=== PATIENT | male | born 1995 | race Caucasian/White ===

== ENCOUNTER 2016-06-29 09:14 | Emergency (ER) | payer OTHER ==
[2016-06-29 09:34] VITALS: BP 152/95; PULSE 64; RESP 18; TEMP 98
--- NOTE | 2016-06-29 09:44 | ED ---
Lower Extremity Injury HPI - General Chief Complaint: Extremity Injury, Lower Stated Complaint: Foot pain Time Seen by Provider: 06/29/16 09:39 Source: patient, RN notes reviewed Mode of arrival: ambulatory Limitations: physical limitation - History of Present Illness Initial Comments: 20-year-old male presents to the emergency department with a chief complaint of left ankle pain. Patient states he was playing basketball and he landed on his ankle and rolled it. Patient states he now has pain along the lateral aspect of the left ankle. Patient states that it is tender to touch along the lateral aspect. Patient did notice some bruising as well. Patient denies any knee pain. Patient states he has been wearing his dads walking boot which has helped him with his discomfort. Patient states he is not currently having any other symptoms at this time.Patient denies any recent fever, chills, shortness of breath, chest pain, back pain, abdominal pain, nausea vomiting, numbness or tingling, dysuria or hematuria, constipation or diarrhea, headaches or visual changes, or any other current symptoms. - Related Data Home Medications Medication Instructions Recorded Confirmed No Known Home Medications [No 06/29/16 06/29/16 Known Home Medications] Allergies Allergy/AdvReac Type Severity Reaction Status Date / Time No Known Allergies Allergy Verified 06/29/16 09:34 Review of Systems ROS Statement: Those systems with pertinent positive or pertinent negative responses have been documented in the HPI. ROS Other: All systems not noted in ROS Statement are negative. Past Medical History Past Medical History: No Reported History History of Any Multi-Drug Resistant Organisms: None Reported Past Surgical History: No Surgical Hx Reported Past Psychological History: No Psychological Hx Reported Smoking Status: Never smoker Past Alcohol Use History: None Reported, Occasional Past Drug Use History: None Reported General Exam - General Exam Comments Initial Comments: General: The patient is awake and alert, in no distress, and does not appear acutely ill. Neck: The neck is supple, there is no tenderness. Cardiovascular: There is a regular rate and rhythm. No murmur, rub or gallop is appreciated. Respiratory: Lungs are clear to auscultation, respirations are non-labored, breath sounds are equal. No wheezes, stridor, rales, or rhonchi. Musculoskeletal: Patient has no proximal left knee tenderness with full range of motion. Patient does appear to have some ecchymosis along the lateral aspect of the distal aspect of the shelley with some tenderness over the lateral malleolus and some bruising noted just distal to the lateral malleolus. No tenderness throughout the foot. No tenderness to the medial malleolus. Minimal swelling noted. Neurological: CN II-XII intact, There are no obvious motor or sensory deficits. Coordination appears grossly intact. Speech is normal. Skin: Skin is warm and dry and no rashes or lesions are noted. Psychiatric: Normal mood and affect. Limitations: physical limitation Course Vital Signs 06/29/16 09:29 Temperature 98 F Pulse Rate 64 Respiratory 18 Rate Blood Pressure 152/95 O2 Sat by Pulse 99 Oximetry Medical Decision Making - Medical Decision Making 20-year-old male presents emergency department with left ankle pain. At this time patient appears to have a left ankle sprain x-ray does not show any acute process. This time we did discuss follow-up with his doctor. We discussed return parameters. We discussed all patient's questions. He stated he understood and agreed with plan. They will be discharged home. - Radiology Data Radiology results: report reviewed, image reviewed Disposition Clinical Impression: Left ankle sprain Disposition: HOME SELF-CARE Condition: Stable Instructions: Ankle Sprain (ED) Additional Instructions: Please use medication as discussed. Please follow up with family doctor if symptoms have not improved over the next two days. Please return to the emergency room if your symptoms increase or worsen or for any other concerns. Referrals: Justice Barahona MD [Primary Care Provider] - 1-2 days Time of Disposition: 10:03
--- NOTE | 2016-06-29 09:56 | XR ---
EXAMINATION TYPE: XR ankle complete LT DATE OF EXAM: 06/29/2016 9:50 AM COMPARISON: NONE HISTORY: 20-year-old male left ankle pain due to rolling injury 2 days ago TECHNIQUE: 3 views FINDINGS: There is circumferential soft tissue swelling at the ankle with underlying anterior tibiotalar joint effusion. Ankle mortise is congruent with preservation of the distal tibiofibular overlap. No acute f racture, subluxation, or dislocation. IMPRESSION: Circumferential soft tissue swelling at the ankle, especially laterally, without underlying joint eff usion. No acute osseous abnormality seen.
== END 2016-06-29 10:26 | disposition home or self-care (01) ==
LOC: EC 09:14
DX: S93.402A Sprain of unspecified ligament of left ankle, initial encounter (principal); W19.XXXA Unspecified fall, initial encounter; X50.1XXA Overexertion from prolonged static or awkward postures, initial encounter; Y93.67 Activity, basketball
CPT/HCPCS: 99283

== ENCOUNTER 2018-04-11 18:57 | Emergency (ER) | payer BC ==
--- NOTE | 2018-04-11 22:02 | ED ---
General Adult HPI - General Chief complaint: Chest Pain Stated complaint: Chest Pain/Cough, Sore Throat Source: patient Mode of arrival: ambulatory Limitations: no limitations - History of Present Illness Initial comments: Tapan is a 22-year-old male who presents the emergency department for evaluation of sore throat, body aches, subjective fever and burning like chest pain. Patient reports he had symptoms over the weekend, he saw his primary care earlier in the day today and was diagnosed with strep. Patient reports his primary care physician prescribe steroids for his burning chest pain and advised him that he likely had bronchitis however he became concerned this may be cardiac in nature so he came to the ER for reevaluation. Patient has no cardiac history no family history of early cardiac disease. He has no history of DVT PE or known family history of clotting disorder. Patient denies any shortness of breath, diaphoresis or lightheadedness. He denies any palpitations. He describes it as a constant burning in his chest that is worse with deep inspiration or coughing. - Related Data Home Medications Medication Instructions Recorded Confirmed Azithromycin 500 mg PO DAILY 04/11/18 04/11/18 Butalb/APAP/Caff 50-325-40Mg 1 tab PO BID 04/11/18 04/11/18 [Fioricet 50-325-40] Phenyleph/Acetaminophn/Doxylam 1 tab PO BID 04/11/18 04/11/18 [Vicks Dayquil-Nyquil Sinex Cap] methylPREDNISolone Dose Pack See Taper PO DIRECTED 04/11/18 04/11/18 [Medrol Dose Pack] Allergies Allergy/AdvReac Type Severity Reaction Status Date / Time No Known Allergies Allergy Verified 04/11/18 20:48 Review of Systems ROS Statement: Those systems with pertinent positive or pertinent negative responses have been documented in the HPI. ROS Other: All systems not noted in ROS Statement are negative. Past Medical History Past Medical History: No Reported History History of Any Multi-Drug Resistant Organisms: None Reported Past Surgical History: No Surgical Hx Reported Past Psychological History: No Psychological Hx Reported Smoking Status: Never smoker Past Alcohol Use History: None Reported, Occasional Past Drug Use History: Marijuana General Exam - General Exam Comments Initial Comments: Physical Exam GENERAL: Patient is well-developed and well-nourished. Patient is nontoxic and well- hydrated and is in no distress. HENT: Normocephalic, Atraumatic. EYES: PERRL, EOMI PULMONARY: Unlabored respirations. No audible rales rhonchi or wheezing was noted. CARDIOVASCULAR: There is a regular rate and rhythm without any murmurs gallops or rubs. ABDOMEN: Soft and nontender with normal bowel sounds. SKIN: Skin is clear with no lesions or rashes and otherwise unremarkable. : Deferred NEUROLOGIC: Patient is alert and oriented x3. Moving all extremities spontaneously MUSCULOSKELETAL: Normal extremities with adequate strength and full range of motion. No lower extremity swelling or edema. No calf tenderness. PSYCHIATRIC: Normal psychiatric evaluation. Limitations: no limitations Limitations: no limitations Course Vital Signs 04/11/18 04/11/18 04/12/18 19:05 20:52 00:05 Temperature 98.6 F 98.0 F Pulse Rate 91 74 Pulse Rate [ 65 Cook Box Filler ] Respiratory 20 18 Rate Blood Pressure 145/81 131/84 O2 Sat by Pulse 100 98 Oximetry EKG Findings - EKG Comments: EKG Findings:: EKG obtained at 2144 rate is 68 rhythm is sinus there is a normal axis there are normal intervals, NE 150, QRS 100, QTc is 387. No acute ST elevations or depressions is no evidence of acute ischemia or infarction. There is no diffuse ST elevation or depression suggestive of pericarditis. Medical Decision Making - Medical Decision Making Patient was seen and evaluated history is obtained from patient Patient with burning chest pain with associated cough diagnosis strep earlier today and given steroids for bronchitis Patient with no cardiac risk factors EKG and chest x-ray ordered KG is nonischemic Chest x-ray was unremarkable Reevaluated the patient is resting comfortably in a advised the patient of his normal findings patient at this time is agreeable with the plan for discharge home continued steroids for treatment of bronchitis and outpatient follow-up with his primary care. Return parameters were discussed with questions pertaining care were answered patient was discharged home in stable condition. Disposition Clinical Impression: Atypical chest pain, URI (upper respiratory infection) Disposition: HOME SELF-CARE Condition: Stable Instructions (If sedation given, give patient instructions): Chest Pain (ED), Acute Bronchitis (ED) Is patient prescribed a controlled substance at d/c from ED?: No Referrals: Justice Barahona MD [Primary Care Provider] - 1-2 days
--- NOTE | 2018-04-11 22:58 | XR ---
EXAM: XR Chest, 2 Views CLINICAL HISTORY: ITS.REASON XR Reason: Pain TECHNIQUE: Frontal and lateral views of the chest. COMPARISON: No relevant prior studies available. FINDINGS: Lungs: Unremarkable. No consolidation. Pleural space: Unremarkable. No pneumothorax. Heart: Unremarkable. No cardiomegaly. Mediastinum: Unremarkable. Bones/joints: Unremarkable. IMPRESSION: . No evidence of acute pulmonary disease
[2018-04-12 00:23] VITALS: BP 131/84; PULSE 74; RESP 18; TEMP 98
== END 2018-04-12 00:06 | disposition home or self-care (01) ==
LOC: EC 18:57
DX: J06.9 Acute upper respiratory infection, unspecified (principal); R07.89 Other chest pain; Z79.899 Other long term (current) drug therapy
CPT/HCPCS: 71046; 93005; 99285